=== PATIENT | male | born 1990 | race Caucasian/White ===

== ENCOUNTER → 2017-08-21 | Outpatient (CLI) | payer OTHER ==
[~2017-08-21] MED LIST: AMPH20TA2 PO; CEPH500C2 PO; OXYC-57 PO
[2017-08-21 13:15] LABS: BASO % 0.4 %; BASO ABS # 0.02 K/uL (0-0.2); EOS % 0.6 %; EOS ABS # 0.03 K/uL (0-0.5); HEMATOCRIT 45.2 % (42-52); HEMOGLOBIN 16.5 g/dL (14.0-18.0); IG# 0.01 K/uL (0.00-0.02); LYMPH ABS # 2.08 K/uL (1.2-3.4); MEAN CELL VOLUME 86.1 fL (80-100); MEAN CORPUSCULAR HEMOGLOBIN 31.4 pg (25-34); MEAN CORPUSCULAR HGB CONC 36.5 g/dl (32-36); MEAN PLATELET VOLUME 11.1 fL (7.4-10.4); MONO % 11.1 %; MONO ABS # 0.59 K/uL (0.11-0.59); NEUT % 48.7 %; PLATELET COUNT 192 K/uL (130-400); RED CELL DISTRIBUTION WIDTH CV 13.2 % (11.5-14.5); RED CELL DISTRIBUTION WIDTH SD 41.6 fL (36.4-46.3); WHITE BLOOD COUNT 5.33 K/uL (4.8-10.8)
[2017-08-21 13:51] LABS: ALBUMIN 4.1 gm/dl (3.4-5.0); ALT/SGPT 51 U/L (12-78); AST/SGOT 26 U/L (15-37); BLOOD UREA NITROGEN 19 mg/dl (7-18); CALCIUM 9.3 mg/dl (8.5-10.1); CARBON DIOXIDE 26 mmol/L (21-32); CREATININE 1.14 mg/dl (0.60-1.40); GLUCOSE 89 mg/dl (70-99); POTASSIUM 3.8 mmol/L (3.5-5.1); SODIUM 137 mmol/L (136-145)
[2017-08-21 14:02] LABS: ALKALINE PHOSPHATASE 49 U/L (45-117); TOTAL PROTEIN 7.8 gm/dl (6.4-8.2)
== END | disposition home or self-care (01) ==
LOC: C.LAB1850 11:58
PROVIDERS: ATTEND Physician Assistant
DX: R56.9 Unspecified convulsions (principal)

== ENCOUNTER → 2017-09-02 | Outpatient (CLI) | payer OTHER ==
[~2017-09-02] MED LIST changes: +GADAVIST IV PRN
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
== END | disposition home or self-care (01) ==
LOC: C.MRIBC 07:41
PROVIDERS: ATTEND Physician Assistant
DX: R56.9 Unspecified convulsions (principal)

== ENCOUNTER 2017-09-19 17:47 | Emergency (ER) | payer OTHER ==
[~2017-09-19] VITALS: Ht 180.3 cm; Wt 103.8 kg
[~2017-09-19 17:47] MED LIST changes: -GADAVIST IV PRN
[2017-09-19 17:50] VITALS: TEMP 37.4; Ht 180.3 cm; Wt 103.8 kg
[2017-09-19] MEDS ORDERED: LIDOCAINE/EPINEPH/TETRACAINE 1 EA SYR EXT STA (18:01)
[2017-09-19] MEDS ORDERED: IBUPROFEN 600 MG TAB PO STA (18:04)
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
[2017-09-19] MEDS ORDERED: BENZOCAINE 20% AER SPR 82.5 GM CAN EXT PRN (18:45)
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
[2017-09-19] MEDS ORDERED: ZOLP5TAB6 PO (19:18)
[2017-09-19] MEDS ORDERED: MULT-506 PO (19:18)
[2017-09-19] MEDS ORDERED: NRT/25 PO (19:18)
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
[2017-09-19] MEDS ORDERED: OXYCODONE IR HOME PACK PO ONE (20:15)
[2017-09-19] MEDS ORDERED: CEPHALEXIN MONOHYDRATE 250 MG CAP PO ONE (20:15)
[2017-09-19] MEDS ORDERED: CEPHALEXIN 500MG HOME PACK 1 EA BTL PO ONE (20:15)
[2017-09-19] MEDS ORDERED: LIDOCAINE/EPINEPHRINE 1% 20 ML VIAL INFIL ONE (20:15)
[2017-09-19] MEDS ORDERED: CEPH500C2 PO (21:10)
[2017-09-19 21:42] VITALS: BP 126/76; PULSE 76; O2SAT 98
--- NOTE | 2017-09-20 00:13 | EMERGENCY ROOM VISIT NOTE ---
ED Visit Note I was asked by Dr. Weiss to perform laceration repair of this patient. Exam reveals multiple abrasions to the upper lip and bilateral arms. He does have a few deeper abrasions/lacerations. There is a 2 cm laceration to the left elbow as well as a small, subcentimeter laceration lateral to this. There is a 1 cm laceration to the dorsal aspect of the right wrist. Verbal consent was obtained to perform the procedure. The abrasion of the upper lip was slightly debrided under sterile technique. Using sterile technique the wounds were cleansed with Betadine. The areas were sterilely draped. A total of 3 ml of 1% buffered lidocaine with epinephrine was used to anesthetize the lacerations. Once the patient was anesthetized, the wounds were copiously irrigated under pressure with sterile saline. The wounds were explored and were as described above. The larger left elbow laceration was repaired using 2 simple interrupted 4-0 nylon sutures with the wound edges being well approximated. The second elbow laceration was repaired using 1 simple interrupted 4-0 nylon sutures with the wound edges being well approximated. The laceration to the right wrist was repaired using one simple interrupted 4-0 nylon suture. The patient tolerated the procedure well. Hemostasis was achieved. The areas were cleaned with sterile saline and dressed with bacitracin ointment and bandages.
== END 2017-09-19 21:43 | disposition home or self-care (01) ==
LOC: C.EDB 17:48
DX: S00.511A Abrasion of lip, initial encounter (principal); S01.21XA Laceration without foreign body of nose, initial encounter; S41.111A Laceration without foreign body of right upper arm, initial encounter; S41.112A Laceration without foreign body of left upper arm, initial encounter; S70.311A Abrasion, right thigh, initial encounter; S70.312A Abrasion, left thigh, initial encounter; V19.9XXA Pedal cyclist (driver) (passenger) injured in unspecified traffic accident, initial encounter; Z79.899 Other long term (current) drug therapy; F41.9 Anxiety disorder, unspecified

== ENCOUNTER 2017-10-22 07:56 | Emergency (ER) | payer OTHER ==
[~2017-10-22] VITALS: Ht 180.3 cm; Wt 97.7 kg
[~2017-10-22 07:56] MED LIST changes: -AMPH20TA2 PO; +MULT-506 PO; +NRT/25 PO; -OXYC-57 PO; +ZOLP5TAB6 PO
[2017-10-22 08:45] LABS: HEMATOCRIT 45.5 % (42-52); HEMOGLOBIN 16.9 g/dL (14.0-18.0); MEAN CELL VOLUME 83.2 fL (80-100); MEAN CORPUSCULAR HEMOGLOBIN 30.9 pg (25-34); MEAN CORPUSCULAR HGB CONC 37.1 g/dl (32-36); MEAN PLATELET VOLUME 10.7 fL (7.4-10.4); PLATELET COUNT 237 K/uL (130-400); RED CELL DISTRIBUTION WIDTH CV 12.6 % (11.5-14.5); RED CELL DISTRIBUTION WIDTH SD 37.8 fL (36.4-46.3); WHITE BLOOD COUNT 6.03 K/uL (4.8-10.8)
--- NOTE | 2017-10-22 09:14 | DIAGNOSTIC IMAGING REPORT ---
CHEST 2 VIEWS ROUTINE CLINICAL HISTORY: Evaluate for pneumomediastinum. Accidental ingestion. COMPARISON STUDY: No previous studies for comparison. FINDINGS: Lung volumes are normal. Lungs are clear. No pneumothorax or pleural effusion is noted. There is no evidence for pneumomediastinum. There is a healed fracture of the left first rib. IMPRESSION: No acute cardiopulmonary findings. No pneumomediastinum identified by radiography. Electronically signed by: Marcellus Welsh M.D. 10/22/2017 9:13 AM Dictated Date/Time: 10/22/2017 9:10 AM
--- NOTE | 2017-10-22 09:15 | DIAGNOSTIC IMAGING REPORT ---
NECK RADIOGRAPHS CLINICAL HISTORY: Accidental ingestion. Evaluate for air. COMPARISON STUDY: CT of the cervical spine September 19, 2017. FINDINGS: Epiglottis is normal. Prevertebral soft tissues are unremarkable. There is no evidence for soft tissue gas within the neck by radiography. No upper mediastinal pneumomediastinum is identified. IMPRESSION: No pneumomediastinum or soft tissue gas within the neck by radiography. Electronically signed by: Marcellus Welsh M.D. 10/22/2017 9:14 AM Dictated Date/Time: 10/22/2017 9:13 AM
[2017-10-22 09:31] LABS: ALBUMIN 4.2 gm/dl (3.4-5.0); CALCIUM 9.7 mg/dl (8.5-10.1); CREATININE 1.32 mg/dl (0.60-1.40); POTASSIUM 4.4 mmol/L (3.5-5.1)
[2017-10-22] MEDS ORDERED: ACETYLCYSTEINE IV 21 HOUR REGIMEN IV STA (10:37)
[2017-10-22] MEDS ORDERED: ACETYLCYSTEINE IV ONE (11:00)
[2017-10-22] MEDS ORDERED: DEXTROSE 5% IV ONE (11:00)
[2017-10-22 11:15] VITALS: O2SAT 98; Ht 180.3 cm; Wt 97.7 kg
[2017-10-22] MEDS ORDERED: ACETYLCYSTEINE IV SCH ×3 (12:00→22:00)
[2017-10-22] MEDS ORDERED: DEXTROSE 5% IV SCH ×3 (12:00→22:00)
[2017-10-22] MEDS ORDERED: ACETAMINOPHEN 325 MG TAB PO PRN (12:15)
[2017-10-22] MEDS ORDERED: MAGNESIUM HYDROXIDE SUSP 30 ML UDC PO PRN (12:15)
[2017-10-22] MEDS ORDERED: ONDANSETRON INJ 2 MG/ML 2 ML VIAL IV PRN (12:15)
--- NOTE | 2017-10-22 12:17 | History and Physical ---
History & Physical Date & Time of Service: October 22, 2017 at 12:06 Chief Complaint: swallowed tide yesterday accidently Primary Care Physician: Bradley Gupta MD History of Present Illness Source: patient 26 y/o M c/o throat fullness. Pt states he accidentally ingested a cup of Tide yesterday. He states that it was sitting next to a glass of water. He drank the water and then wasn't paying attention and drank the Tide. He states that he was not trying to hurt himself intentionally. He does admit to having suicidal thoughts prior to the ingestion however. He states he drank more water after the Tide. He did have n/v after this as well, but only yesterday. He was able to eat oatmeal today, but had not tried anything more firm due to feeling like he can't swallow completely due to a fullness feeling. He denies any blood or fernando pain in the throat. He has never ingested Tide prior. Denies other ingestions. Pt states that he spoke with his father who recommended that he call the Can Help line today. He states that he was not having an SI today, but only called to ask if there was anything he should worry about after taking the Tide yesterday, and thought they might know what to do. Pt states he feels fine now other than the throat fullness. Pt denies fever, SOB , chest pain, abd pain, n/v/c/d, LE pain or swelling. Pt follows with [facility] psych team. He was recently started on mirtazapine for sleep issues, but states he stopped taking it due to hallucinations. He was supposed to start Abilify, however he did not start this. He initially said it was due to cost, but then also said he only wanted to start one new medication at a time. He was supposed to have f/u with [facility] today. ED physician spoke with Poison Control who recommended acetylcysteine 21 hour protocol given ingestion of one substance can sometimes indicate ingestion of another that it not being admitted to. Because ingestion was yesterday, acetaminophen levels would not be elevated today. Of note, per ED physician and [facility] team, pt's story has changed several times today. Initially, pt reported that his ingestion was intentional, however later retracted this statement. Past Medical/Surgical History Anxiety Depression Family History Family history was reviewed; no changes noted. Father with hx of alcoholism and SI/SA Social History Smoking Status: Never Smoker Alcohol Use: none Drug Use: none Marital Status: single Occupational Status: [employer] student Allergies Coded Allergies: No Known Allergies (Unverified , 10/22/17) Home Medications Scheduled Zolpidem Tartrate (Zolpidem Tartrate), 10 MG PO HS Review of Systems Pertinent positives and negatives reviewed in HPI--all others negative Physical Exam Vital Signs Date Time Temp Pulse Resp B/P (MAP) Pulse Ox O2 Delivery O2 Flow Rate FiO2 10/22/17 11:13 88 18 168/90 98 Room Air 10/22/17 09:30 80 18 151/93 96 Room Air 10/22/17 07:58 36.6 83 18 162/95 96 Room Air General Appearance: WD/WN, no apparent distress Head: normocephalic, atraumatic Eyes: normal inspection, sclerae normal ENT: pharynx normal, + pertinent finding (no ulcerations of soft palate noted) Neck: supple Respiratory/Chest: normal breath sounds, no respiratory distress Cardiovascular: regular rate, rhythm, no edema Abdomen/GI: non tender, soft Extremities/Musculoskelatal: no calf tenderness, no pedal edema Neurologic/Psych: alert, oriented x 3, + pertinent finding (somewhat anxious appearing) Skin: normal color, warm/dry Diagnostics Laboratory Results Results Past 24 Hours Test 10/22/17 08:18 10/22/17 08:31 Range/Units Urine Color DK YELLOW Urine Appearance CLEAR CLEAR Urine pH 5.5 4.5-7.5 Urine Specific [place] 1.024 1.000-1.030 Urine Protein TRACE NEG Urine Glucose (UA) NEG NEG Urine Ketones NEG NEG Urine Occult Blood NEG NEG Urine Nitrite NEG NEG Urine Bilirubin NEG NEG Urine Urobilinogen NEG NEG Urine Leukocyte Esterase NEG NEG Urine WBC (Auto) 0 0-5 /hpf Urine RBC (Auto) 0-4 0-4 /hpf Urine Hyaline Casts (Auto) 0 0-5 /lpf Urine Epithelial Cells (Auto) 0-5 0-5 /lpf Urine Bacteria (Auto) NEG NEG Urine Opiates Screen NEG NEG Urine Methadone, Qualitative NEG NEG Urine Barbiturates NEG NEG Urine Phencyclidine (PCP) Level NEG NEG Ur Amphetamine/Methamphetamine NEG NEG MDMA (Ecstasy) Screen NEG NEG Urine Benzodiazepines Screen NEG NEG Urine Cocaine Metabolite NEG NEG Urine Marijuana (THC) NEG NEG White Blood Count 6.03 4.8-10.8 K/uL Red Blood Count 5.47 4.7-6.1 M/uL Hemoglobin 16.9 14.0-18.0 g/dL Hematocrit 45.5 42-52 % Mean Corpuscular Volume 83.2 80-100 fL Mean Corpuscular Hemoglobin 30.9 25-34 pg Mean Corpuscular Hemoglobin Concent 37.1 32-36 g/dl RDW Standard Deviation 37.8 36.4-46.3 fL RDW Coefficient of Variation 12.6 11.5-14.5 % Platelet Count 237 130-400 K/uL Mean Platelet Volume 10.7 7.4-10.4 fL Sodium Level 136 136-145 mmol/L Potassium Level 4.4 3.5-5.1 mmol/L Chloride Level 100 98-107 mmol/L Carbon Dioxide Level 28 21-32 mmol/L Anion Gap 8.0 3-11 mmol/L Blood Urea Nitrogen 21 7-18 mg/dl Creatinine 1.32 0.60-1.40 mg/dl Est Creatinine Clear Calc Drug Dose 101.9 ml/min Estimated GFR () 86.3 Estimated GFR (Non- 74.5 BUN/Creatinine Ratio 15.5 10-20 Random Glucose 85 70-99 mg/dl Calcium Level 9.7 8.5-10.1 mg/dl Total Bilirubin 0.8 0.2-1 mg/dl Direct Bilirubin 0.2 0-0.2 mg/dl Aspartate Amino Transf (AST/SGOT) 158 15-37 U/L Alanine Aminotransferase (ALT/SGPT) 90 12-78 U/L Alkaline Phosphatase 51 45-117 U/L Total Protein 8.0 6.4-8.2 gm/dl Albumin 4.2 3.4-5.0 gm/dl Thyroid Stimulating Hormone (TSH) 0.882 0.300-4.500 uIu/ml Salicylates Level < 1.7 2.8-20 mg/dl Acetaminophen Level < 2 10-30 ug/ml Ethyl Alcohol mg/dL < 3.0 0-3 mg/dl Diagnostic Radiology Soft tissue XR: neg for acute CXR normal Normal EKG Impression Assessment and Plan 26 y/o M who was admitted for observation on 10/22 for Tide ingestion SI: pt has conflicting stories as to whether this was intentional or not Psych to see pt Poison Control recs for 21hr acetylcysteine protocol as it is normal operation to assume co-ingestion Started in the ED Utox neg LFTs with slight elevation, repeat in AM IVF TSH, CBC, UA WNL VSS Depression/anxiety: not currently on medications Psych c/s If LFTs improving, pt will be able to transfer to psych care s/p completion of acetylcysteine protocol Resuscitation Status VTE Prophylaxis Will order VTE Prophylaxis: No Reason for no VTE drug order: Treatment not indicated Reason no Mechanical VTE Order: Treatment not indicated (ambulation)
[2017-10-22] MEDS ORDERED: IV FLUIDS COMPLETED PRN (12:30)
[2017-10-22] MEDS ORDERED: METHYLPREDNISOLONE 125 MG VIAL IV STA (12:35)
[2017-10-22] MEDS ORDERED: DiphenhydrAMINE HCL 50 MG/ML VIAL IV STA (12:35)
[2017-10-22 13:19] VITALS: BP 167/89; PULSE 90; TEMP 36.5; O2SAT 99
[2017-10-22] MEDS ORDERED: DiphenhydrAMINE HCL 50 MG/ML VIAL IV SCH (14:00)
[2017-10-22] MEDS: SODIUM CHLORIDE 0.9% 1000ML 1,000 ML IV SCH ×2 (14:17→22:15)
--- NOTE | 2017-10-22 14:38 | Psychiatric Consultation ---
Consultation Date of Consultation October 22, 2017. Identifying Data 26 yo male admitted medically after ingesting Tide liquid laundry detergent. We are consulted to evaluate possible suicide attempt. Information is gathered from the patient, the EMR and OP records from Dr. Majano. All are considered to be reliable. Chief Complaint "I don't know". History of Present Illness The patient is a 26 yo male, currently living in [place] with his mother, who reports that yesterday during the day, he ingested a "small amount" of liquid Tide detergent. He has given varying reports of his intent, and there was concern for suicidality. At the time I see the patient he is seated on the bed , eating ice cream. He appears anxious, restless, frequently getting up to walk. When asked to describe the events of yesterday, he has a very difficult being specific in his description. He says that "the Tide was just there", and "it all happened so quick" but admits to intentionally ingesting the Tide. When asked to show me with his fingers, how much was in the container, he estimates about a cup, but cannot clearly tell me if he drank that amount or stopped after a small amount. He says that he was not trying to kill himself, but can't say what his intention was. He says that his mood recently has been "more down", but denies SI. According to Dr. Majano's evaluation, dated 10/09/17 , the patient has a history of treatment for ADHD with adderall, which stopped working over time. He apparently has a bachelors, and a Master's in sports management and last year was working in [employer] at a sports [employer]. In broad strokes, Dr. Majano describes that while in [place] he was binge drinking leading to a seizure, had some grandiosity thinking that he was going to get rich as a model, and was noted by his friends to be talking too much. This led to the patient getting fired from his job, and so he returned to [place] and is living with his mother. There was also a period of time last summer during which he was paranoid, thought his computer and phone were bugged as part of an international conspiracy. On 10/09 Dr. Majano prescribed Remeron 15 mg for impaired sleep, and Abilify 5 mg to target mood instability. Ashok took the Remeron for only a few days, describes feeling like he was having an "out of body experience" and so stopped. He never got the Abilify filled because his insurance didn't cover it. Today he reports that his sleep has continued to be impaired, getting no more than 4-5 hours max per night. He says that his appetite is good. He denies aud/vis hallucinations. Past Psychiatric History Current OP Treatment: psychiatrist (Dr. Majano) Prior OP Treatment: psychiatrist (unknown) Prior Psych Hospitalizations: none Suicide Attempts: No Past Medication Trials Adderall Remeron Past Medical/Surgical History (1) History of seizure Allergies Allergies: Coded Allergies: No Known Allergies (Unverified , 10/22/17) Home Medications Scheduled Zolpidem Tartrate (Zolpidem Tartrate), 10 MG PO HS Family History Patient reports no known family medical history. History of Suicide: No History of Substance Abuse: No Psychiatric History: Yes (Father with depression and mental health hospitalizations. ) Alcohol Use Alcohol Use In Past 12 Months: Yes binge drinking last year while in [employer] [facility], currently gives varying reports of alcohol use. Smoking Use Smoking Status: Never Smoker Uses chewing tobacco Personal History Lives in: [place] with mother. Parents are , but both live locally Childhood: Raised by both parents until divorce. 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 Currently unemployed Relationship History: never Children: none Review of Systems Constitutional: other (insomnia) Eyes: denies: no symptoms, as stated in HPI, eye pain, tearing, itching, redness, discharge, double vision, visual changes, blurred vision, photophobia, other ENT: reports: other (In ED described a fullness in his throat) Cardiovascular: denies: no symptoms reported, see HPI, chest pain, chest tightness, chest pressure, diaphoresis, palpitations, syncope, other Respiratory: denies: no symptoms reported, see HPI, cough, orthopnea, short of breath, stridor, wheezing, sputum production, cyanosis, العلي, PND, other Gastrointestinal: denies no symptoms reported, denies see HPI, denies abdominal pain, denies constipation, denies diarrhea, denies nausea, denies vomiting, denies other Genitourinary - Male: denies: no symptoms, see HPI, rash, amenorrhea, penile itching, penile discharge, testicular pain, testicular swelling, impotence, other Musculoskeletal: denies no symptoms reported, denies see HPI, denies back pain , denies gout, denies joint pain, denies joint swelling, denies muscle pain, denies muscle stiffness, denies neck pain, denies other Integumentary: denies no symptoms reported, denies see HPI, denies change in color, denies change in hair/nails, denies dryness, denies lesions, denies lumps , denies rash, denies other Neurologic: denies: no symptoms, see HPI, headache, numbness, paresthesias, pre -existing deficit, seizure, tingling, tremors, general weakness, tics, focal weakness, vertigo, lethargy, memory loss, dizziness, other Endocrine: denies: no symptoms, as stated in HPI, cold intolerance, heat intolerance, hair changes, goiter, polydipsia, polyuria, skin changes, other Hematologic / Lymphatic: denies: no symptoms, as stated in HPI, abnormal clotting, adenopathy, anemia, easy bleeding, easy bruising, gums bleeding, petechiae, other Examination Vital Signs Vital Signs Past 12 Hours Date Time Temp Pulse Resp B/P (MAP) Pulse Ox O2 Delivery O2 Flow Rate FiO2 10/22/17 13:19 36.5 90 16 167/89 (115) 99 Room Air 10/22/17 13:00 94 20 185/100 98 10/22/17 12:40 90 22 182/103 98 Room Air 10/22/17 11:15 98 Room Air 10/22/17 11:13 88 18 168/90 98 Room Air 10/22/17 09:30 80 18 151/93 96 Room Air 10/22/17 07:58 36.6 83 18 162/95 96 Room Air Laboratory Results Last 24 Hours Test 10/22/17 08:18 10/22/17 08:31 Urine Color DK YELLOW Urine Appearance CLEAR Urine pH 5.5 Urine Specific [place] 1.024 Urine Protein TRACE Urine Glucose (UA) NEG Urine Ketones NEG Urine Occult Blood NEG Urine Nitrite NEG Urine Bilirubin NEG Urine Urobilinogen NEG Urine Leukocyte Esterase NEG Urine WBC (Auto) 0 /hpf Urine RBC (Auto) 0-4 /hpf Urine Hyaline Casts (Auto) 0 /lpf Urine Epithelial Cells (Auto) 0-5 /lpf Urine Bacteria (Auto) NEG Urine Opiates Screen NEG Urine Methadone, Qualitative NEG Urine Barbiturates NEG Urine Phencyclidine (PCP) Level NEG Ur Amphetamine/Methamphetamine NEG MDMA (Ecstasy) Screen NEG Urine Benzodiazepines Screen NEG Urine Cocaine Metabolite NEG Urine Marijuana (THC) NEG White Blood Count 6.03 K/uL Red Blood Count 5.47 M/uL Hemoglobin 16.9 g/dL Hematocrit 45.5 % Mean Corpuscular Volume 83.2 fL Mean Corpuscular Hemoglobin 30.9 pg Mean Corpuscular Hemoglobin Concent 37.1 g/dl RDW Standard Deviation 37.8 fL RDW Coefficient of Variation 12.6 % Platelet Count 237 K/uL Mean Platelet Volume 10.7 fL Sodium Level 136 mmol/L Potassium Level 4.4 mmol/L Chloride Level 100 mmol/L Carbon Dioxide Level 28 mmol/L Anion Gap 8.0 mmol/L Blood Urea Nitrogen 21 mg/dl Creatinine 1.32 mg/dl Est Creatinine Clear Calc Drug Dose 101.9 ml/min Estimated GFR () 86.3 Estimated GFR (Non- 74.5 BUN/Creatinine Ratio 15.5 Random Glucose 85 mg/dl Calcium Level 9.7 mg/dl Total Bilirubin 0.8 mg/dl Direct Bilirubin 0.2 mg/dl Aspartate Amino Transf (AST/SGOT) 158 U/L Alanine Aminotransferase (ALT/SGPT) 90 U/L Alkaline Phosphatase 51 U/L Total Protein 8.0 gm/dl Albumin 4.2 gm/dl Thyroid Stimulating Hormone (TSH) 0.882 uIu/ml Salicylates Level < 1.7 mg/dl Acetaminophen Level < 2 ug/ml Ethyl Alcohol mg/dL < 3.0 mg/dl Mental Examination During interview pt is: alert and oriented, cooperative Appearance: appropriately groomed Eye contact is: good Motor behavior is: psychomotor agitation Speech: normal in rate, rhythm & volume Affect: blunted, anxious Mood is: depressed Thought process: other (at times disorganized) Thought content: cognitive distortions Suicidal thought are: denied Homicidal thoughts are: denied Hallucinations: denies auditory, denies visual Cognition: memory grossly intact, language grossly intact Intelligence estimated to be: average Insight: impaired Judgement: impaired Impression / Recommendations Impression 26-year-old male admitted medically after an intentional toxic ingestion of liquid Tide detergent. She admits to the intentional ingestion but denies it was suicidal although he cannot really explain what his intention was. His thinking is mildly disorganized, unable to provide details that make sense. Given the information from Dr. Majano's initial evaluation from October 09 and this bizarre and unexplained behavior, I have concerns for an underlying psychosis or even a bipolar disorder. He did not follow through on Dr. Majano's recommendations and I do not think that this is a case where outpatient medication adjustments should be attempted. I am recommending inpatient mental health treatment. Although he is not medically cleared, at this time he is saying he wants to pursue outpatient treatment and not inpatient. I have told him that we will have another discussion at the time he is medically cleared. There is a 302 petitioner statement on the chart and we will proceed with a 302 in the event the patient will not accept voluntary treatment. The patient should not be allowed to leave the hospital AMA. Risk Factors Assessment Male: Yes : Yes /single/: Yes Higher / Fall in social status: Yes Health problems: Yes Mental Health Diagnoses: Yes Substance use disorders: Yes Previous attempt: No Family history of suicide: No Previous psychiatric stay: No Smoker: No Protective Factors Assessment : No Responsible for young children: No Employed: No Stable relationships: Yes Supportive family: Yes Recommendations (1) Unspecified mood [affective] disorder 10/22 -Admits to intentional toxic ingestion - Recommend inpatient mental health treatment when medically cleared - Will pursue 302 (petitioners statement on chart) if unwilling for voluntary treatment - He should not be allowed to leave AMA Dr. Henderson has personally been involved in the review of this case and development of these recommendations.
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
[2017-10-22 20:00] VITALS: O2SAT 99
[2017-10-22] MEDS ORDERED: ZOLPIDEM TARTRATE 10 MG TAB PO SCH (21:00)
[2017-10-22] MEDS ORDERED: METHYLPREDNISOLONE 125 MG in SYRINGE 0 ML IV SCH (22:00)
[2017-10-22 23:23] VITALS: BP 151/77; PULSE 80; TEMP 37.5; O2SAT 96
[2017-10-23] VITALS: O2SAT 99
--- NOTE | 2017-10-23 00:58 | Progress Note ---
Progress Note Date of Service October 23, 2017. Progress Note Upon reviewing all H patients on the census it came to my attention that there was no 1 to 1 order on this patient. At 12:45am I called and spoke to nurse taking care of the patient and she confirmed that there is a one to one in the room and that the patient is doing well. I have added the 1 to 1 order to reflect the floor status. The nurse advised me that she spoke with poison control and they recommend checking LFTs and PT/INR 12 hours after starting the 3rd bag of ACETADOTE. The 3rd and final bag was hung around midnight. This would mean a check around noon. I have edited the CMP and PT/INR AM labs to be drawn at 10am - which is still 24+ hrs since last check and a good compromise between poison controls recommendations and still keeping a good eye on liver function. Resident Involvement: Press Setter Coverage Note Care Provided: Adult [facility] Medicine
[2017-10-23 07:11] VITALS: BP 143/73; PULSE 65; TEMP 36.6; O2SAT 95
--- NOTE | 2017-10-23 09:13 | Family Medicine Progress Note ---
Progress Note Date of Service October 23, 2017. Medications Current Inpatient Medications Medications (Trade) Dose Ordered Sig/William Route Start Time Stop Time Status Last Admin Dose Admin Magnesium Hydroxide (Milk Of Magnesia Susp) 30 ml Q6H PRN PO 10/22/17 12:15 11/21/17 12:14 Ondansetron HCl (Zofran Inj) 4 mg Q6H PRN IV 10/22/17 12:15 11/21/17 12:14 Zolpidem Tartrate (Ambien Tab) 10 mg HS PO 10/22/17 21:00 11/21/17 20:59 10/22/17 22:12 10 MG Sodium Chloride 1,000 ml @ 100 mls/hr Q10H IV 10/22/17 12:15 11/21/17 12:14 10/22/17 22:15 100 MLS/HR Miscellaneous (Iv Fluids Completed) 1 ea PRN PRN N/A 10/22/17 12:30 10/22/18 12:29 Acetylcysteine 9800 mg/Dextrose 1,049 ml @ 45 mls/hr TODAY@2200 IV 10/22/17 22:00 10/23/17 21:19 10/22/17 23:19 45 MLS/HR Objective Vital Signs Date Time Temp Pulse Resp B/P (MAP) Pulse Ox O2 Delivery O2 Flow Rate FiO2 10/23/17 07:11 36.6 65 18 143/73 (96) 95 10/23/17 00:00 99 Room Air 10/22/17 23:23 37.5 80 14 151/77 (101) 96 Room Air 10/22/17 20:00 99 Room Air 10/22/17 13:19 36.5 90 16 167/89 (115) 99 Room Air 10/22/17 13:00 94 20 185/100 98 10/22/17 12:40 90 22 182/103 98 Room Air 10/22/17 11:15 98 Room Air 10/22/17 11:13 88 18 168/90 98 Room Air 10/22/17 09:30 80 18 151/93 96 Room Air Resident Tracking Resident Involvement: Resident Care Provided Care Provided: Adult Hospital Medicine (inpatient)
[2017-10-23 10:03] LABS: INR 1.2 (0.9-1.1)
[2017-10-23] MEDS: SODIUM CHLORIDE 0.9% 1000ML 1,000 ML IV SCH (10:03)
[2017-10-23 10:24] LABS: ALBUMIN 3.5 gm/dl (3.4-5.0); CALCIUM 9.2 mg/dl (8.5-10.1); CREATININE 1.13 mg/dl (0.60-1.40); TOTAL PROTEIN 7.4 gm/dl (6.4-8.2)
--- NOTE | 2017-10-23 11:39 | Discharge Instructions ---
Discharge Instructions Date of Service October 23, 2017. Admission Reason for Admission: Suicide Attempt Discharge Discharge Diagnosis / Problem: Intentional chemical ingestion Discharge Goals Goal(s): Learn about illness, Therapeutic intervention Activity Recommendations Activity Limitations: per Instructions/Follow-up section . Instructions / Follow-Up Instructions / Follow-Up You were admitted for observation to the hospital following intentional ingestion of liquid Tide detergent. After discussions with poison control and with improvement of your liver labs, your medically safe to be transferred to inpatient mental health for further care. Upon discharge from their care, please follow-up with your primary care provider for continuity of care purposes as well. Current Hospital Diet Patient's current hospital diet: Regular Diet Discharge Diet Recommended Diet: Regular Diet Pending Studies Studies pending at discharge: no Medical Emergencies . Who to Call and When: Medical Emergencies: If at any time you feel your situation is an emergency, please call 911 immediately. . Non-Emergent Contact Non-Emergency issues call your: Primary Care Provider, Specialist (Psychiatrist ) .
--- NOTE | 2017-10-23 11:45 | Discharge Summary ---
Discharge Summary Date of Service October 23, 2017. Discharge Summary Admission Date: October 22, 2017 at 12:05 Discharge Date: October 23, 2017 Discharge Disposition: Acute care mental health Principal Diagnosis: Intentional ingestion of liquid Tide detergent Problems/Secondary Diagnoses: Unspecified mood disorder Throat fullness Procedures: X-ray neck on 22 Oct 2017 IMPRESSION: No pneumomediastinum or soft tissue gas within the neck by radiography. Two view chest x-ray on 22 Oct 2017 IMPRESSION: No acute cardiopulmonary findings. No pneumomediastinum identified by radiography. Consultations: Psychiatry assessment and plan on 22 Oct 2017 Impression 26-year-old male admitted medically after an intentional toxic ingestion of liquid Tide detergent. She admits to the intentional ingestion but denies it was suicidal although he cannot really explain what his intention was. His thinking is mildly disorganized, unable to provide details that make sense. Given the information from Dr. Majano's initial evaluation from October 09 and this bizarre and unexplained behavior, I have concerns for an underlying psychosis or even a bipolar disorder. He did not follow through on Dr. Majano's recommendations and I do not think that this is a case where outpatient medication adjustments should be attempted. I am recommending inpatient mental health treatment. Although he is not medically cleared, at this time he is saying he wants to pursue outpatient treatment and not inpatient. I have told him that we will have another discussion at the time he is medically cleared. There is a 302 petitioner statement on the chart and we will proceed with a 302 in the event the patient will not accept voluntary treatment. The patient should not be allowed to leave the hospital AMA. Recommendations (1) Unspecified mood [affective] disorder -Admits to intentional toxic ingestion - Recommend inpatient mental health treatment when medically cleared - Will pursue 302 (petitioners statement on chart) if unwilling for voluntary treatment - He should not be allowed to leave AMA Dr. Henderson has personally been involved in the review of this case and development of these recommendations. Medication Reconciliation Discontinued Medications: Zolpidem Tartrate (Zolpidem Tartrate) 5 Mg Tab 10 MG PO HS for Sleep Discharge Exam General Appearance: Awake, alert & oriented, comfortable in general, NAD. Neck: Full and actual range of motion without pain or difficulty. No palpable cervical lymphadenopathy or feeling of fullness around the paratracheal soft tissues. CV: +S1S2 RRR, no murmur. Pulm: Clear to auscultation throughout. Abdomen: +BS, soft, non-tender, non-distended. Extremities: No pedal edema or calf tenderness. Moving all extremities naturally and easily. Neuro: No gross neuro deficits. Psych: Appears a bit anxious, moving about in the bed, but answers questions appropriately. No pressured speech. Review of Systems: Constitutional: No fever, No chills Respiratory: No cough, No shortness of breath Cardiovascular: No chest pain, No edema Abdomen: No pain, No nausea, No vomiting, No diarrhea Psychiatric: + anxiety Hospital Course HPI time of admission on October 22, 2017 at 12:06 - 26 y/o M c/o throat fullness. Pt states he accidentally ingested a cup of Tide yesterday. He states that it was sitting next to a glass of water. He drank the water and then wasn't paying attention and drank the Tide. He states that he was not trying to hurt himself intentionally. He does admit to having suicidal thoughts prior to the ingestion however. He states he drank more water after the Tide. He did have n/v after this as well, but only yesterday. He was able to eat oatmeal today, but had not tried anything more firm due to feeling like he can't swallow completely due to a fullness feeling. He denies any blood or fernando pain in the throat. He has never ingested Tide prior. Denies other ingestions. Pt states that he spoke with his father who recommended that he call the Can Help line today. He states that he was not having an SI today, but only called to ask if there was anything he should worry about after taking the Tide yesterday, and thought they might know what to do. - Pt states he feels fine now other than the throat fullness. Pt denies fever, SOB, chest pain, abd pain, n/v/c/d, LE pain or swelling. - Pt follows with [facility] psych team. He was recently started on mirtazapine for sleep issues, but states he stopped taking it due to hallucinations. He was supposed to start Abilify, however he did not start this. He initially said it was due to cost, but then also said he only wanted to start one new medication at a time. He was supposed to have f/u with [employer] today. - ED physician spoke with Poison Control who recommended acetylcysteine 21 hour protocol given ingestion of one substance can sometimes indicate ingestion of another that it not being admitted to. Because ingestion was yesterday, acetaminophen levels would not be elevated today. - Of note, per ED physician and [facility] team, pt's story has changed several times today. Initially, pt reported that his ingestion was intentional, however later retracted this statement. 26-year-old male was admitted for observation on 22 Oct 2017 after purposeful liquid Tide detergent ingestion. PMH: Anxiety and depression Ingestion of liquid Tide detergent: This morning, patient appears quite comfortable and has no acute overnight concerns. Per prior team's discussions with poison control, the patient has been on the 21 hour acetylcysteine protocol due to his mildly elevated LFTs. Repeat check of his labs noted improvement. The patient continues to deny any other co-ingestions and his tox screen was negative. Unspecified mood disorder: Patient admits to an intentional toxic ingestion. The patient continues to be voluntarily willing to be admitted for further psychiatric evaluation. - His acetylcysteine protocol will be completed around 4 PM today. Once that infusion is complete, he is medically cleared for transfer for further mental health care. Throat fullness: Most likely the sequelae of some mild irritation from the ingestion. He has been able to speak, swallow, and breathe without difficulty since this time, including in the hospital. No focal findings on external physical exam. Code status: Full code Diet: Regular diet DVT prophy: SCD's and ambulation. Disbo: Plan for discharge from [facility] unit and transferred to inpatient psychiatry today. Resident Physician Supervision Note: I was present with Dr. Sal during the history and exam. I discussed the case with the resident and agree with the findings and plan as documented in the note. The patient is alert and oriented without complaint. He is voluntarily admission to the psychiatric floor following his discharge this afternoon. Documented By: Vj Feliciano Total Time Spent: Less than 30 minutes This includes examination of the patient, discharge planning, medication reconciliation, and communication with other providers. Discharge Instructions Please refer to the electronic Patient Visit Report (Discharge Instructions) for additional information. Additional Copies To Bradley Gupta MD Resident Tracking Resident Involvement: Resident Care Provided Care Provided: Adult Hospital Medicine (inpatient)
[2017-10-23 13:34] VITALS: BP 143/73; PULSE 65; TEMP 36.6; O2SAT 95
[2017-10-23 15:15] VITALS: BP_SYST 155; BP_SYST 166; BP_DIAS 84; BP_DIAS 86; PULSE 56; TEMP 36.4; O2SAT 100
[2017-10-26] MEDS ORDERED: SRQ/100 PO (07:56)
== END 2017-10-23 19:32 ==
LOC: C.EDB 07:58 → C.4E 12:05 → EDBEDREQ 12:11 → ENRESERV 12:24
PROVIDERS: ADMIT Family Medicine; ATTEND Family Medicine
DX: T55.1X2A Toxic effect of detergents, intentional self-harm, initial encounter (principal); F39 Unspecified mood [affective] disorder; R19.8 Other specified symptoms and signs involving the digestive system and abdomen; F41.9 Anxiety disorder, unspecified; R94.5 Abnormal results of liver function studies; X83.8XXA Intentional self-harm by other specified means, initial encounter; T50.995A Adverse effect of other drugs, medicaments and biological substances, initial encounter